=== PATIENT | male | born 1990 | race African-American/Black ===

== ENCOUNTER 2019-05-14 13:19 | Emergency (ER) | payer SELFPAY ==
[~2019-05-14] VITALS: Ht 175.3 cm; Wt 74.8 kg
--- NOTE | 2019-05-14 14:01 | NUR ---
PT IS IN ROOM #2A. DR LORD EVALUATED THE PT.
[2019-05-14 14:22] VITALS: BP 139/77
--- NOTE | 2019-05-14 14:22 | NUR ---
PT WAS D/C'd TO HOME. D/C INSTRUCTIONS GIVEN TO THE PT.
== END 2019-05-14 14:24 | disposition home or self-care (01) ==
LOC: ER 13:21
DX: R21 Rash and other nonspecific skin eruption (principal)
CPT/HCPCS: 36415; 86592; A4663